=== PATIENT | female | born 1930 | race Caucasian/White ===

== ENCOUNTER 2017-07-19 11:12 | Emergency (ER) | payer MEDICARE, MEDICAID ==
[~2017-07-19] VITALS: Ht 160 cm; Wt 61.0 kg
[~2017-07-19 11:12] MED LIST: ATEN50TA; ATOR20TA65; FLUT1DIS; LOSA50TA3; METF500T7
[2017-07-19] MEDS ORDERED: TRAMADOL 50MG TABLET PO ONE (12:15)
[2017-07-19 13:18] LABS: EOSINOPHILS % 2.3 % (0.0-5.0); HEMATOCRIT. 36.7 % (36.0-48.0); HEMOGLOBIN. 12.1 g/dL (12.0-16.0); LYMPHOCYTES % 23.6 % (20.0-50.0); MEAN CORPUSCULAR HEMOGLOBIN 29.5 pg (28.0-32.0); MEAN CORPUSCULAR VOLUME 89.3 fL (81.0-99.0); MEAN PLATELET VOLUME 8.1 fl (7.4-10.4); MONOCYTES % 6.2 % (2.0-8.0); NEUTROPHILS % 66.9 % (40.0-76.0); PLATELET 222 x1000/uL (130-400); RED BLOOD CELL COUNT 4.11 mill/uL (4.2-5.4); RED CELL DISTRIBUTION WIDTH 13.4 % (11.6-14.6)
[2017-07-19 13:28] LABS: PARTIAL THROMBOPLASTIN TIME 25.2 sec (23.4-31.0); PROTHROMBIN TIME 10.7 sec (9.4-11.6)
[2017-07-19 13:33] LABS: CARBON DIOXIDE 28 mEq/L (21-32); CHLORIDE 105 mEq/L (98-107)
[2017-07-19 13:36] LABS: TROPONIN I < 0.02 ng/mL (0.00-0.04)
[2017-07-19] MEDS ORDERED: SODIUM CHLORIDE 0.9% 500 ML IV ONE (14:42)
[2017-07-19 16:04] VITALS: BP 145/65
== END 2017-07-19 16:05 | disposition home or self-care (01) ==
LOC: ER 13:37
DX: M54.12 Radiculopathy, cervical region (principal); M48.02 Spinal stenosis, cervical region; E86.0 Dehydration; I10 Essential (primary) hypertension; E11.65 Type 2 diabetes mellitus with hyperglycemia; J45.909 Unspecified asthma, uncomplicated; E78.00 Pure hypercholesterolemia, unspecified; Z79.84 Long term (current) use of oral hypoglycemic drugs; Z98.890 Other specified postprocedural states
CPT/HCPCS: 36415; 71010; 72141; 80048; 84484; 85025; 85610; 85730; 93005; 99285; J7040

== ENCOUNTER 2019-02-10 16:56 | Inpatient (IN) | payer MEDICARE, MEDICAID ==
[~2019-02-10] VITALS: Ht 152.4 cm; Wt 70.8 kg
[2019-02-10] MEDS ORDERED: ALBUTEROL (0.083%) 2.5MG/3ML NEB HHN STA (17:15)
[2019-02-10] MEDS ORDERED: LEVOFLOXACIN 750MG PREMIX 150 ML IV ONE (17:15)
[2019-02-10] MEDS ORDERED: SODIUM CHLORIDE 0.9% 1000ML BAG (SEPSIS BOLUS) IV ONE (17:15)
[2019-02-10] MEDS ORDERED: IPRATROPIUM BROMIDE (0.02%) 0.5MG/2.5ML NEB HHN STA (17:15)
[2019-02-10] MEDS ORDERED: METHYLPREDNISOLONE SOD SUCC 125 MG/2 ML VIAL IV STA (17:15)
[2019-02-10] MEDS ORDERED: ASPIRIN 81MG TABLET PO ONE (17:45)
[2019-02-10 17:51] LABS: BASOPHILS % 0.6 % (0.0-2.0); EOSINOPHILS % 2.8 % (0.0-5.0); HEMATOCRIT. 41.5 % (36.0-48.0); HEMOGLOBIN. 13.7 g/dL (12.0-16.0); LYMPHOCYTES % 25.5 % (20.0-50.0); MEAN CORPUSCULAR HEMOGLOBIN 29.5 pg (28.0-32.0); MEAN CORPUSCULAR VOLUME 89.1 fL (81.0-99.0); MEAN PLATELET VOLUME 8.2 fl (7.4-10.4); NEUTROPHILS % 66.1 % (40.0-76.0); PLATELET 207 x1000/uL (130-400); RED BLOOD CELL COUNT 4.65 mill/uL (4.2-5.4); RED CELL DISTRIBUTION WIDTH 13.6 % (11.6-14.6)
[2019-02-10 17:56] LABS: CHLORIDE 104 mEq/L (98-107)
[2019-02-10 18:01] LABS: PARTIAL THROMBOPLASTIN TIME 26.1 sec (23.4-31.0); PROTHROMBIN TIME 10.2 sec (9.1-11.1)
[2019-02-10 19:49] LABS: CLARITY URINE CLEAR (CLEAR); COLOR URINE YELLOW (YELLOW); KETONES URINE NEGATIVE (NEGATIVE); LEUKOCYTE ESTERASE URINE NEGATIVE (NEGATIVE); NITRITE URINE NEGATIVE (NEGATIVE); OCCULT BLOOD URINE NEGATIVE (NEGATIVE); PH URINE 6.5 (4.5-8.0); PROTEIN URINE NEGATIVE (NEGATIVE); SPECIFIC GRAVITY URINE 1.005 (1.005-1.030); UROBILINOGEN URINE 0.2 E.U./dL (0.2-1.0)
[2019-02-10] MEDS ORDERED: DEXTROSE 50% WATER 50ML SYRINGE IV PRN (23:45)
[2019-02-10] MEDS ORDERED: DIPHENHYDRAMINE 50MG/ML VIAL IV PRN (23:45)
[2019-02-10] MEDS ORDERED: ONDANSETRON HCL 4MG/2ML INJ IV PRN (23:45)
[2019-02-10] MEDS ORDERED: CEFTRIAXONE 1 G PREMIX 50 ML IV SCH (23:45)
[2019-02-10] MEDS ORDERED: AZITHROMYCIN 500 MG in DEXT 5% WATER 250 ML IV SCH (23:45)
[2019-02-10] MEDS ORDERED: IPRATROPIUM/ALBUTEROL 0.5-3(2.5)MG/3ML NEB INH PRN (23:45)
[2019-02-10] MEDS ORDERED: CLONIDINE 0.1MG TABLET PO PRN (23:45)
[2019-02-10] MEDS ORDERED: MAGNESIUM/ALUMINUM HYDROXIDE/SIMETHICONE 30ML UDC PO PRN (23:45)
[2019-02-10] MEDS ORDERED: GUAIFENESIN 200MG/10ML SUGAR FREE UDC PO PRN (23:45)
[2019-02-11] VITALS (7 sets, daily range): BP systolic 112–142; BP diastolic 49–70
[2019-02-11] MEDS: CEFTRIAXONE 1 G PREMIX 50 ML IV SCH (03:42)
[2019-02-11] MEDS: ACETAMINOPHEN 325MG TABLET PO PRN ×2 (03:44→11:37)
[2019-02-11] MEDS: IPRATROPIUM/ALBUTEROL 0.5-3(2.5)MG/3ML NEB HHN SCH ×5 (04:20→20:13)
[2019-02-11] MEDS: AZITHROMYCIN 500 MG in DEXT 5% WATER 250 ML IV SCH (05:08)
[2019-02-11] MEDS: BENZONATATE 100MG CAPSULE PO SCH ×3 (05:08→21:06)
[2019-02-11] MEDS: SODIUM CHLORIDE 0.9% INJ 3ML FLUSH IVF SCH ×3 (05:08→21:06)
[2019-02-11] MEDS: METHYLPREDNISOLONE SOD SUCC 125 MG/2 ML VIAL IV SCH ×3 (05:08→21:06)
[2019-02-11] MEDS: BLOOD SUGAR DIAGNOSTIC STRIP TEST SCH ×4 (07:27→20:49)
[2019-02-11] MEDS: ASPIRIN 81MG EC TABLET PO SCH (08:45)
[2019-02-11] MEDS: LINAGLIPTIN 5MG TABLET PO SCH (08:45)
[2019-02-11] MEDS: ENOXAPARIN 30MG/0.3ML SYR SUBCUT SCH (08:46)
[2019-02-11] MEDS: INSULIN LISPRO 100 UNITS/ML SUBCUT SCH ×4 (08:52→21:05)
[2019-02-11] MEDS ORDERED: INSULIN GLARGINE UD 100 UNITS/ML SYR SUBCUT SCH (10:00)
[2019-02-11] MEDS: INSULIN GLARGINE UD 100 UNITS/ML SYR SUBCUT SCH (11:39)
[2019-02-11] MEDS: MONTELUKAST SODIUM 10MG TABLET PO SCH (18:43)
[2019-02-11] MEDS: ATORVASTATIN CALCIUM 40MG TABLET PO SCH (21:06)
[2019-02-12] MEDS: IPRATROPIUM/ALBUTEROL 0.5-3(2.5)MG/3ML NEB HHN SCH ×5 (00:31→19:59)
[2019-02-12 00:52] VITALS: BP 126/67
[2019-02-12 04:00] VITALS: BP 114/55
[2019-02-12] MEDS: CEFTRIAXONE 1 G PREMIX 50 ML IV SCH (05:15)
[2019-02-12] MEDS: BENZONATATE 100MG CAPSULE PO SCH ×3 (05:15→21:18)
[2019-02-12] MEDS: SODIUM CHLORIDE 0.9% INJ 3ML FLUSH IVF SCH ×3 (05:16→21:18)
[2019-02-12] MEDS: METHYLPREDNISOLONE SOD SUCC 125 MG/2 ML VIAL IV SCH (05:16)
[2019-02-12] MEDS: BLOOD SUGAR DIAGNOSTIC STRIP TEST SCH ×5 (06:10→21:18)
[2019-02-12 08:00] VITALS: BP 141/68
[2019-02-12] MEDS: INSULIN LISPRO 100 UNITS/ML SUBCUT SCH ×4 (08:55→21:00)
[2019-02-12] MEDS: AZITHROMYCIN 500 MG in DEXT 5% WATER 250 ML IV SCH (09:08)
[2019-02-12] MEDS: LINAGLIPTIN 5MG TABLET PO SCH (09:09)
[2019-02-12] MEDS: ACETAMINOPHEN 325MG TABLET PO PRN (09:09)
[2019-02-12] MEDS: ASPIRIN 81MG EC TABLET PO SCH (09:09)
[2019-02-12] MEDS: ENOXAPARIN 30MG/0.3ML SYR SUBCUT SCH (09:09)
[2019-02-12] MEDS: INSULIN GLARGINE UD 100 UNITS/ML SYR SUBCUT SCH (09:12)
[2019-02-12 12:00] VITALS: BP 134/66
[2019-02-12] MEDS: LORATADINE 10MG TABLET PO SCH (12:00)
[2019-02-12] MEDS: FAMOTIDINE 20MG TABLET PO SCH (12:00)
[2019-02-12] MEDS ORDERED: LOPERAMIDE HCL 2MG CAPSULE PO NR (14:45)
[2019-02-12] MEDS ORDERED: LOPERAMIDE HCL 2MG CAPSULE PO PRN (14:45)
[2019-02-12 16:00] VITALS: BP 140/72
[2019-02-12] MEDS: MONTELUKAST SODIUM 10MG TABLET PO SCH (17:26)
[2019-02-12] MEDS: METHYLPREDNISOLONE SOD SUCC 40 MG/ML VIAL IV SCH (17:27)
[2019-02-12 20:00] VITALS: BP 125/61
[2019-02-12] MEDS: ATORVASTATIN CALCIUM 40MG TABLET PO SCH (21:18)
[2019-02-12 22:56] LABS: CREATINE KINASE MB FRACTION 7.3 ng/mL (0.5-3.6)
[2019-02-13] VITALS: BP 122/51
[2019-02-13] MEDS: IPRATROPIUM/ALBUTEROL 0.5-3(2.5)MG/3ML NEB HHN SCH ×4 (02:12→20:44)
[2019-02-13 04:00] VITALS: BP 117/58
[2019-02-13] MEDS: METHYLPREDNISOLONE SOD SUCC 40 MG/ML VIAL IV SCH ×2 (05:05→17:47)
[2019-02-13] MEDS: CEFTRIAXONE 1 G PREMIX 50 ML IV SCH (05:05)
[2019-02-13] MEDS: SODIUM CHLORIDE 0.9% INJ 3ML FLUSH IVF SCH ×3 (05:05→21:11)
[2019-02-13] MEDS: BENZONATATE 100MG CAPSULE PO SCH ×3 (05:05→21:09)
[2019-02-13] MEDS: BLOOD SUGAR DIAGNOSTIC STRIP TEST SCH ×4 (06:22→21:10)
[2019-02-13 06:58] LABS: CREATINE KINASE MB FRACTION 5.7 ng/mL (0.5-3.6)
[2019-02-13 08:00] VITALS: BP 120/53
[2019-02-13] MEDS: INSULIN LISPRO 100 UNITS/ML SUBCUT SCH ×4 (08:06→21:11)
[2019-02-13] MEDS: FAMOTIDINE 20MG TABLET PO SCH (09:05)
[2019-02-13] MEDS: LINAGLIPTIN 5MG TABLET PO SCH (09:06)
[2019-02-13] MEDS: ASPIRIN 81MG EC TABLET PO SCH (09:06)
[2019-02-13] MEDS: LORATADINE 10MG TABLET PO SCH (09:07)
[2019-02-13] MEDS: ENOXAPARIN 30MG/0.3ML SYR SUBCUT SCH (09:08)
[2019-02-13] MEDS: AZITHROMYCIN 500 MG in DEXT 5% WATER 250 ML IV SCH (09:08)
[2019-02-13] MEDS: INSULIN GLARGINE UD 100 UNITS/ML SYR SUBCUT SCH (10:09)
[2019-02-13 16:00] VITALS: BP 134/54
[2019-02-13] MEDS: MONTELUKAST SODIUM 10MG TABLET PO SCH (17:47)
[2019-02-13 20:35] VITALS: BP 125/61
[2019-02-13] MEDS: ATORVASTATIN CALCIUM 40MG TABLET PO SCH (21:09)
[2019-02-13] MEDS: FLUTICASONE PROPIONATE 50MCG/SPRAY BOTTLE BOTHNSTRLS SCH (21:10)
[2019-02-14] VITALS: BP 124/55
[2019-02-14] MEDS: ACETYLCYSTEINE 100MG/ML 10% VIAL 4ML INH SCH ×3 (00:38→17:20)
[2019-02-14] MEDS: IPRATROPIUM/ALBUTEROL 0.5-3(2.5)MG/3ML NEB HHN SCH ×6 (00:38→20:44)
[2019-02-14 04:00] VITALS: BP 107/47
[2019-02-14] MEDS: BENZONATATE 100MG CAPSULE PO SCH ×3 (05:08→21:28)
[2019-02-14] MEDS: SODIUM CHLORIDE 0.9% INJ 3ML FLUSH IVF SCH ×3 (05:08→21:29)
[2019-02-14] MEDS: METHYLPREDNISOLONE SOD SUCC 40 MG/ML VIAL IV SCH ×2 (05:08→18:06)
[2019-02-14] MEDS: CEFTRIAXONE 1 G PREMIX 50 ML IV SCH (05:08)
[2019-02-14] MEDS: BLOOD SUGAR DIAGNOSTIC STRIP TEST SCH ×4 (06:27→21:28)
[2019-02-14 08:00] VITALS: BP 111/55
[2019-02-14] MEDS: ASPIRIN 81MG EC TABLET PO SCH (08:00)
[2019-02-14] MEDS: AZITHROMYCIN 500 MG TABLET PO SCH (08:00)
[2019-02-14] MEDS: FLUTICASONE PROPIONATE 50MCG/SPRAY BOTTLE BOTHNSTRLS SCH ×2 (08:01→21:28)
[2019-02-14] MEDS: LINAGLIPTIN 5MG TABLET PO SCH (08:01)
[2019-02-14] MEDS: ENOXAPARIN 30MG/0.3ML SYR SUBCUT SCH (08:01)
[2019-02-14] MEDS: LORATADINE 10MG TABLET PO SCH (08:01)
[2019-02-14] MEDS: FAMOTIDINE 20MG TABLET PO SCH (08:01)
[2019-02-14] MEDS: INSULIN LISPRO 100 UNITS/ML SUBCUT SCH ×4 (08:04→21:34)
[2019-02-14] MEDS: INSULIN GLARGINE UD 100 UNITS/ML SYR SUBCUT SCH (10:45)
[2019-02-14 12:00] VITALS: BP 121/66
[2019-02-14 16:00] VITALS: BP 116/61
[2019-02-14] MEDS: MONTELUKAST SODIUM 10MG TABLET PO SCH (18:06)
[2019-02-14 20:00] VITALS: BP 105/72
[2019-02-14] MEDS: ATORVASTATIN CALCIUM 40MG TABLET PO SCH (21:28)
[2019-02-15] VITALS: BP 110/59
[2019-02-15] MEDS: ACETYLCYSTEINE 100MG/ML 10% VIAL 4ML INH SCH ×3 (00:39→15:51)
[2019-02-15] MEDS: IPRATROPIUM/ALBUTEROL 0.5-3(2.5)MG/3ML NEB HHN SCH ×6 (00:40→19:53)
[2019-02-15 04:00] VITALS: BP 112/65
[2019-02-15] MEDS: CEFTRIAXONE 1 G PREMIX 50 ML IV SCH (05:07)
[2019-02-15] MEDS: METHYLPREDNISOLONE SOD SUCC 40 MG/ML VIAL IV SCH ×2 (05:07→18:06)
[2019-02-15] MEDS: BENZONATATE 100MG CAPSULE PO SCH ×3 (05:07→21:01)
[2019-02-15] MEDS: SODIUM CHLORIDE 0.9% INJ 3ML FLUSH IVF SCH ×3 (05:07→21:04)
[2019-02-15] MEDS: BLOOD SUGAR DIAGNOSTIC STRIP TEST SCH ×4 (07:20→21:04)
[2019-02-15 08:29] VITALS: BP 113/71
[2019-02-15] MEDS: LINAGLIPTIN 5MG TABLET PO SCH (08:31)
[2019-02-15] MEDS: AZITHROMYCIN 500 MG TABLET PO SCH (08:31)
[2019-02-15] MEDS: FLUTICASONE PROPIONATE 50MCG/SPRAY BOTTLE BOTHNSTRLS SCH ×2 (08:31→21:04)
[2019-02-15] MEDS: FAMOTIDINE 20MG TABLET PO SCH (08:31)
[2019-02-15] MEDS: LORATADINE 10MG TABLET PO SCH (08:31)
[2019-02-15] MEDS: ASPIRIN 81MG EC TABLET PO SCH (08:31)
[2019-02-15] MEDS: ENOXAPARIN 30MG/0.3ML SYR SUBCUT SCH (08:31)
[2019-02-15] MEDS: INSULIN LISPRO 100 UNITS/ML SUBCUT SCH ×4 (08:35→21:09)
[2019-02-15] MEDS: INSULIN GLARGINE UD 100 UNITS/ML SYR SUBCUT SCH (10:07)
[2019-02-15 12:07] VITALS: BP 116/61
[2019-02-15] MEDS ORDERED: TERBUTALINE SULFATE 1MG/ML VIAL SUBCUT SCH (12:30)
[2019-02-15 16:08] VITALS: BP 101/49
[2019-02-15] MEDS: MONTELUKAST SODIUM 10MG TABLET PO SCH (18:06)
[2019-02-15 20:14] VITALS: BP 120/56
[2019-02-15] MEDS: ATORVASTATIN CALCIUM 40MG TABLET PO SCH (21:01)
[2019-02-16] VITALS: BP 126/56
[2019-02-16] MEDS: ACETYLCYSTEINE 100MG/ML 10% VIAL 4ML INH SCH ×3 (00:16→16:08)
[2019-02-16] MEDS: IPRATROPIUM/ALBUTEROL 0.5-3(2.5)MG/3ML NEB HHN SCH ×6 (00:19→22:13)
[2019-02-16 04:00] VITALS: BP 116/60
[2019-02-16] MEDS: CEFTRIAXONE 1 G PREMIX 50 ML IV SCH (05:58)
[2019-02-16] MEDS: METHYLPREDNISOLONE SOD SUCC 40 MG/ML VIAL IV SCH ×2 (05:58→18:29)
[2019-02-16] MEDS: BLOOD SUGAR DIAGNOSTIC STRIP TEST SCH ×4 (05:59→21:00)
[2019-02-16] MEDS: BENZONATATE 100MG CAPSULE PO SCH ×3 (05:59→21:53)
[2019-02-16] MEDS: SODIUM CHLORIDE 0.9% INJ 3ML FLUSH IVF SCH ×3 (05:59→21:53)
[2019-02-16 08:00] VITALS: BP 120/62
[2019-02-16] MEDS: AZITHROMYCIN 500 MG TABLET PO SCH (09:31)
[2019-02-16] MEDS: FAMOTIDINE 20MG TABLET PO SCH (09:31)
[2019-02-16] MEDS: LORATADINE 10MG TABLET PO SCH (09:31)
[2019-02-16] MEDS: LINAGLIPTIN 5MG TABLET PO SCH (09:31)
[2019-02-16] MEDS: ASPIRIN 81MG EC TABLET PO SCH (09:31)
[2019-02-16] MEDS: FLUTICASONE PROPIONATE 50MCG/SPRAY BOTTLE BOTHNSTRLS SCH (09:32)
[2019-02-16] MEDS: ENOXAPARIN 30MG/0.3ML SYR SUBCUT SCH (09:32)
[2019-02-16] MEDS: INSULIN LISPRO 100 UNITS/ML SUBCUT SCH ×4 (09:41→22:07)
[2019-02-16] MEDS: INSULIN GLARGINE UD 100 UNITS/ML SYR SUBCUT SCH (09:44)
[2019-02-16 12:00] VITALS: BP 128/62
[2019-02-16 16:00] VITALS: BP 127/62
[2019-02-16] MEDS: MONTELUKAST SODIUM 10MG TABLET PO SCH (18:29)
[2019-02-16 20:00] VITALS: BP 125/69
[2019-02-16] MEDS: ATORVASTATIN CALCIUM 40MG TABLET PO SCH (21:53)
[2019-02-17] VITALS: BP 120/68
[2019-02-17] MEDS: ACETYLCYSTEINE 100MG/ML 10% VIAL 4ML INH SCH ×4 (00:44→16:04)
[2019-02-17] MEDS: IPRATROPIUM/ALBUTEROL 0.5-3(2.5)MG/3ML NEB HHN SCH ×6 (01:35→20:30)
[2019-02-17 04:00] VITALS: BP 115/52
[2019-02-17] MEDS: CEFTRIAXONE 1 G PREMIX 50 ML IV SCH (05:11)
[2019-02-17] MEDS: SODIUM CHLORIDE 0.9% INJ 3ML FLUSH IVF SCH ×3 (05:11→23:48)
[2019-02-17] MEDS: BENZONATATE 100MG CAPSULE PO SCH ×3 (05:12→21:07)
[2019-02-17] MEDS: METHYLPREDNISOLONE SOD SUCC 40 MG/ML VIAL IV SCH (05:12)
[2019-02-17] MEDS: BLOOD SUGAR DIAGNOSTIC STRIP TEST SCH ×4 (07:24→21:18)
[2019-02-17 08:00] VITALS: BP 119/56
[2019-02-17 08:14] LABS: HEMATOCRIT 42.8 % (36.0-48.0); HEMOGLOBIN 14.3 g/dL (12.0-16.0); MEAN CORPUSCULAR VOLUME 89.7 fL (81.0-99.0); PLATELET 181 x1000/uL (130-400); RED BLOOD CELL COUNT 4.77 mill/uL (4.2-5.4); RED CELL DISTRIBUTION WIDTH 13.9 % (11.6-14.6)
[2019-02-17] MEDS: AZITHROMYCIN 500 MG TABLET PO SCH (08:32)
[2019-02-17] MEDS: LINAGLIPTIN 5MG TABLET PO SCH (08:32)
[2019-02-17] MEDS: ENOXAPARIN 30MG/0.3ML SYR SUBCUT SCH (08:32)
[2019-02-17] MEDS: LORATADINE 10MG TABLET PO SCH (08:32)
[2019-02-17] MEDS: ASPIRIN 81MG EC TABLET PO SCH (08:32)
[2019-02-17] MEDS: FAMOTIDINE 20MG TABLET PO SCH (08:32)
[2019-02-17] MEDS: INSULIN LISPRO 100 UNITS/ML SUBCUT SCH ×4 (08:33→21:06)
[2019-02-17] MEDS: INSULIN GLARGINE UD 100 UNITS/ML SYR SUBCUT SCH (10:59)
[2019-02-17 12:00] VITALS: BP 100/57
[2019-02-17 16:00] VITALS: BP 98/57
[2019-02-17] MEDS: PREDNISONE 20MG TABLET PO SCH (17:33)
[2019-02-17] MEDS: MONTELUKAST SODIUM 10MG TABLET PO SCH (17:33)
[2019-02-17 20:00] VITALS: BP 105/54
[2019-02-17] MEDS: ATORVASTATIN CALCIUM 40MG TABLET PO SCH (21:06)
[2019-02-18] VITALS: BP 101/47
[2019-02-18] MEDS: IPRATROPIUM/ALBUTEROL 0.5-3(2.5)MG/3ML NEB HHN SCH ×2 (00:44→04:42)
[2019-02-18] MEDS: ACETYLCYSTEINE 100MG/ML 10% VIAL 4ML INH SCH ×2 (00:44→06:00)
[2019-02-18 04:00] VITALS: BP 108/50
[2019-02-18] MEDS: SODIUM CHLORIDE 0.9% INJ 3ML FLUSH IVF SCH ×2 (05:39→14:00)
[2019-02-18] MEDS: BENZONATATE 100MG CAPSULE PO SCH ×2 (05:39→13:30)
[2019-02-18] MEDS: BLOOD SUGAR DIAGNOSTIC STRIP TEST SCH ×2 (06:50→12:21)
[2019-02-18 07:43] LABS: CHLORIDE 101 mEq/L (98-107)
[2019-02-18 08:00] VITALS: BP 106/50
[2019-02-18] MEDS: FAMOTIDINE 20MG TABLET PO SCH (09:28)
[2019-02-18] MEDS: PREDNISONE 20MG TABLET PO SCH (09:28)
[2019-02-18] MEDS: LINAGLIPTIN 5MG TABLET PO SCH (09:28)
[2019-02-18] MEDS: ASPIRIN 81MG EC TABLET PO SCH (09:28)
[2019-02-18] MEDS: AZITHROMYCIN 500 MG TABLET PO SCH (09:28)
[2019-02-18] MEDS: LORATADINE 10MG TABLET PO SCH (09:28)
[2019-02-18] MEDS: ENOXAPARIN 30MG/0.3ML SYR SUBCUT SCH (09:29)
[2019-02-18] MEDS: INSULIN LISPRO 100 UNITS/ML SUBCUT SCH ×2 (09:30→13:32)
[2019-02-18] MEDS: INSULIN GLARGINE UD 100 UNITS/ML SYR SUBCUT SCH (09:31)
[2019-02-18 09:47] LABS: HEMATOCRIT. 42.7 % (36.0-48.0); HEMOGLOBIN. 14.1 g/dL (12.0-16.0); MEAN CORPUSCULAR HEMOGLOBIN 29.7 pg (28.0-32.0); MEAN CORPUSCULAR VOLUME 89.8 fL (81.0-99.0); MEAN PLATELET VOLUME 9.2 fl (7.4-10.4); PLATELET 177 x1000/uL (130-400); RED BLOOD CELL COUNT 4.76 mill/uL (4.2-5.4)
[2019-02-18 12:00] VITALS: BP 114/60
[2019-02-19 07:51] LABS: PLATELET ESTIMATE NORMAL
== END 2019-02-18 16:35 | disposition home or self-care (01) | DRG 682 ==
LOC: ER 16:56 → 6WST 18:52 → ENRESERV 23:01
PROVIDERS: ADMIT Internal Medicine; ATTEND Internal Medicine
DX: N17.9 Acute kidney failure, unspecified (principal); J18.9 Pneumonia, unspecified organism; J96.00 Acute respiratory failure, unspecified whether with hypoxia or hypercapnia; J45.901 Unspecified asthma with (acute) exacerbation; E78.00 Pure hypercholesterolemia, unspecified; E78.5 Hyperlipidemia, unspecified; I10 Essential (primary) hypertension; J06.9 Acute upper respiratory infection, unspecified; J00 Acute nasopharyngitis [common cold]; E11.9 Type 2 diabetes mellitus without complications; M19.90 Unspecified osteoarthritis, unspecified site; J20.9 Acute bronchitis, unspecified; Z83.3 Family history of diabetes mellitus; Z87.891 Personal history of nicotine dependence; Z79.84 Long term (current) use of oral hypoglycemic drugs; Z79.899 Other long term (current) drug therapy
CPT/HCPCS: 36415; 71045; 80048; 82553; 82962; 83036; 83605; 83735; 83880; 84484; 85027; 87804; 93005; 94640; 96365; 96375; 99285; C1893; J0456; J0696; J1650; J1815; J1956; J2920; J2930; J3105; J7030; J7040; J7060; J7512; J7608; J7611; J7620

== ENCOUNTER 2019-11-15 10:35 | Emergency (ER) | payer MEDICARE, MEDICAID ==
[~2019-11-15] VITALS: Ht 157.5 cm; Wt 74.0 kg
[2019-11-15 10:54] VITALS: BP 134/45
[2019-11-15] MEDS ORDERED: LIDOCAINE 5% PATCH TOP STA (12:12)
[2019-11-15] MEDS ORDERED: ACETAMINOPHEN 500MG TABLET PO ONE (12:15)
== END 2019-11-15 16:35 | disposition home or self-care (01) ==
LOC: ER 10:35
DX: M54.5 Low back pain (principal); G89.29 Other chronic pain; J45.909 Unspecified asthma, uncomplicated; E11.9 Type 2 diabetes mellitus without complications; E78.00 Pure hypercholesterolemia, unspecified; I10 Essential (primary) hypertension; Z98.890 Other specified postprocedural states; Z79.899 Other long term (current) drug therapy
CPT/HCPCS: 72100; 99283

== ENCOUNTER 2021-03-26 15:48 | Emergency (ER) | payer MEDICARE, MEDICAID ==
[~2021-03-26] VITALS: Ht 154.9 cm; Wt 66.0 kg
[~2021-03-26 15:48] MED LIST changes: -METF500T7; +[UNRECOGNIZED DRUG - CODE]
[2021-03-26 15:51] VITALS: BP 93/71
== END 2021-03-26 16:44 | disposition home or self-care (01) ==
LOC: ER 15:48
DX: S90.31XA Contusion of right foot, initial encounter (principal); X58.XXXA Exposure to other specified factors, initial encounter; Y93.9 Activity, unspecified; Y92.9 Unspecified place or not applicable; I10 Essential (primary) hypertension; E11.9 Type 2 diabetes mellitus without complications; J45.909 Unspecified asthma, uncomplicated; E78.00 Pure hypercholesterolemia, unspecified; Z79.899 Other long term (current) drug therapy; Z79.84 Long term (current) use of oral hypoglycemic drugs
CPT/HCPCS: 99281

== ENCOUNTER 2021-05-08 17:00 | Emergency (ER) | payer MEDICARE, MEDICAID ==
[~2021-05-08] VITALS: Ht 149.9 cm; Wt 70.0 kg
[2021-05-08] MEDS ORDERED: ACETAMINOPHEN 325MG TABLET PO ONE (19:00)
[2021-05-08 19:17] LABS: BASOPHILS % 0.9 % (0.0-2.0); EOSINOPHILS % 2.1 % (0.0-5.0); HEMATOCRIT. 38.8 % (36.0-48.0); HEMOGLOBIN. 12.8 g/dL (12.0-16.0); LYMPHOCYTES % 15.3 % (20.0-50.0); MEAN CORPUSCULAR HEMOGLOBIN 29.4 pg (28.0-32.0); MEAN CORPUSCULAR VOLUME 89.1 fL (81.0-99.0); MEAN PLATELET VOLUME 8.7 fl (7.4-10.4); MONOCYTES % 7.1 % (2.0-8.0); NEUTROPHILS % 74.6 % (40.0-76.0); PLATELET 205 x1000/uL (130-400); RED BLOOD CELL COUNT 4.36 mill/uL (4.2-5.4); RED CELL DISTRIBUTION WIDTH 15.1 % (11.6-14.6)
[2021-05-08 19:25] LABS: CHLORIDE 105 mEq/L (98-107)
[2021-05-08 19:26] LABS: INR 0.9; PROTHROMBIN TIME 10.2 sec (9.6-11.0)
[2021-05-08 19:53] LABS: CLARITY URINE CLEAR (CLEAR); COLOR URINE YELLOW (YELLOW); KETONES URINE NEGATIVE (NEGATIVE); LEUKOCYTE ESTERASE URINE TRACE (NEGATIVE); NITRITE URINE NEGATIVE (NEGATIVE); OCCULT BLOOD URINE NEGATIVE (NEGATIVE); PH URINE 5.5 (4.5-8.0); PROTEIN URINE NEGATIVE (NEGATIVE); UROBILINOGEN URINE 0.2 E.U./dL (0.2-1.0)
[2021-05-08] MEDS ORDERED: NITROFURANTOIN 100MG M/M CAPSULE PO SCH (22:30)
[2021-05-08] MEDS ORDERED: NITR-87 MT (22:46)
[2021-05-09 00:15] VITALS: BP 126/45
== END 2021-05-09 00:30 | disposition home or self-care (01) ==
LOC: ER 17:00
DX: N39.0 Urinary tract infection, site not specified (principal); M79.605 Pain in left leg; I10 Essential (primary) hypertension; E11.9 Type 2 diabetes mellitus without complications; M19.90 Unspecified osteoarthritis, unspecified site
CPT/HCPCS: 36415; 71045; 80053; 81003; 83880; 84484; 85025; 93005; 93970; 99285

== ENCOUNTER 2021-08-23 20:19 | Emergency (ER) | payer MEDICARE, MEDICAID ==
[~2021-08-23] VITALS: Ht 152.4 cm; Wt 70.0 kg
[~2021-08-23 20:19] MED LIST changes: +METF-907; +NITR-87 MT; -[UNRECOGNIZED DRUG - CODE]
[2021-08-23] MEDS ORDERED: IBUPROFEN 400MG TABLET PO ONE (22:30)
[2021-08-23 23:11] VITALS: BP 131/57
== END 2021-08-24 00:05 | disposition home or self-care (01) ==
LOC: ER 20:19
DX: S43.491A Other sprain of right shoulder joint, initial encounter (principal); W01.0XXA Fall on same level from slipping, tripping and stumbling without subsequent striking against object, initial encounter; Y93.01 Activity, walking, marching and hiking; Y92.018 Other place in single-family (private) house as the place of occurrence of the external cause; E11.9 Type 2 diabetes mellitus without complications; J45.909 Unspecified asthma, uncomplicated; Z79.84 Long term (current) use of oral hypoglycemic drugs; Z79.899 Other long term (current) drug therapy
CPT/HCPCS: 73030; 73060; 99284; A4565

== ENCOUNTER 2021-11-23 17:58 | Emergency (ER) | payer MEDICARE, MEDICAID ==
[~2021-11-23] VITALS: Ht 157.5 cm; Wt 82.0 kg
[2021-11-23] MEDS ORDERED: MORPHINE SULFATE 4 MG/ML CPJ (NOT FOR IM USE) IV STA (19:09)
[2021-11-23 19:56] LABS: BASOPHILS % 0.6 % (0.0-2.0); HEMATOCRIT. 43.2 % (36.0-48.0); HEMOGLOBIN. 14.3 g/dL (12.0-16.0); LYMPHOCYTES % 18.6 % (20.0-50.0); MEAN CORPUSCULAR HEMOGLOBIN 29.2 pg (28.0-32.0); MEAN CORPUSCULAR VOLUME 88.4 fL (81.0-99.0); MEAN PLATELET VOLUME 8.4 fl (7.4-10.4); MONOCYTES % 8.2 % (2.0-8.0); NEUTROPHILS % 70.6 % (40.0-76.0); PLATELET 212 x1000/uL (130-400); RED BLOOD CELL COUNT 4.88 mill/uL (4.2-5.4); RED CELL DISTRIBUTION WIDTH 14.5 % (11.6-14.6)
[2021-11-23 20:00] LABS: CHLORIDE 103 mEq/L (98-107)
[2021-11-23] MEDS ORDERED: HYDR-4001 MT (20:55)
[2021-11-23] MEDS ORDERED: KETOROLAC 30MG/ML VIAL IV ONE (21:00)
[2021-11-23 22:50] VITALS: BP 152/70
== END 2021-11-23 23:02 | disposition home or self-care (01) ==
LOC: ER 17:58
DX: R10.2 Pelvic and perineal pain (principal); M25.552 Pain in left hip; I10 Essential (primary) hypertension; Z91.81 History of falling
CPT/HCPCS: 36415; 72100; 72170; 80053; 85025; 96374; 96375; 99284; J1885; J2270

== ENCOUNTER 2022-02-16 08:37 | Inpatient (IN) | payer MEDICARE, MEDICAID ==
[~2022-02-16] VITALS: Ht 152.4 cm; Wt 68.1 kg
[~2022-02-16 08:37] MED LIST changes: +HYDR-4001 MT
[2022-02-16] MEDS ORDERED: MORPHINE SULFATE 4 MG/ML CPJ (NOT FOR IM USE) IV STA (08:56)
[2022-02-16] MEDS ORDERED: SODIUM CHLORIDE 0.9% 1,000 ML IV ONE (09:00)
[2022-02-16 09:25] LABS: BASOPHILS % 0.4 % (0.0-2.0); EOSINOPHILS % 1.2 % (0.0-5.0); HEMATOCRIT. 39.2 % (36.0-48.0); MEAN CORPUSCULAR HEMOGLOBIN 29.2 pg (28.0-32.0); MEAN CORPUSCULAR VOLUME 87.9 fL (81.0-99.0); MEAN PLATELET VOLUME 8.4 fl (7.4-10.4); MONOCYTES % 4.9 % (2.0-8.0); NEUTROPHILS % 83.5 % (40.0-76.0); PLATELET 188 x1000/uL (130-400); RED BLOOD CELL COUNT 4.46 mill/uL (4.2-5.4); RED CELL DISTRIBUTION WIDTH 13.5 % (11.6-14.6)
[2022-02-16 09:31] LABS: CHLORIDE 103 mEq/L (98-107)
[2022-02-16 11:42] LABS: CLARITY URINE CLEAR (CLEAR); COLOR URINE YELLOW (YELLOW); KETONES URINE NEGATIVE (NEGATIVE); LEUKOCYTE ESTERASE URINE 2+ (NEGATIVE); NITRITE URINE NEGATIVE (NEGATIVE); OCCULT BLOOD URINE NEGATIVE (NEGATIVE); PROTEIN URINE NEGATIVE (NEGATIVE); SPECIFIC GRAVITY URINE 1.014 (1.005-1.030)
[2022-02-16 13:13] VITALS: BP 126/52
[2022-02-16] MEDS ORDERED: MEMA10TA55 PO (13:39)
[2022-02-16] MEDS ORDERED: MONT10TA32 PO (13:39)
[2022-02-16] MEDS ORDERED: NORT10CA PO (13:39)
[2022-02-16] MEDS ORDERED: ATOR40TA70 PO (13:39)
[2022-02-16] MEDS ORDERED: PANT40TA51 PO (13:39)
[2022-02-16] MEDS ORDERED: ASPI-1497 PO (13:39)
[2022-02-16] MEDS ORDERED: LINA5TAB PO (13:39)
[2022-02-16] MEDS ORDERED: LACT10SO6 PO (13:39)
[2022-02-16] MEDS ORDERED: ALEN1TAB MT (13:42)
[2022-02-16] MEDS ORDERED: ALEN10TA25 PO (13:42)
[2022-02-16 16:00] VITALS: BP 111/75
[2022-02-16] MEDS: SODIUM CHLORIDE 0.9% 1,000 ML IV SCH (16:29)
[2022-02-16] MEDS ORDERED: DEXTROSE 50% WATER 50ML SYRINGE IV PRN (17:00)
[2022-02-16] MEDS: BLOOD SUGAR DIAGNOSTIC STRIP TEST SCH ×2 (17:47→20:18)
[2022-02-16] MEDS: INSULIN LISPRO 100 UNITS/ML SUBCUT SCH ×2 (17:50→20:28)
[2022-02-16 20:00] VITALS: BP 138/72
[2022-02-16] MEDS: KETOROLAC 15MG/ML VIAL IV PRN (20:13)
[2022-02-16] MEDS ORDERED: NALOXONE HCL 0.4MG/ML VIAL IV PRN (20:15)
[2022-02-17] VITALS: BP 99/56
[2022-02-17] MEDS ORDERED: VANCOMYCIN 1G PREMIX 200 ML IV SCH
[2022-02-17] MEDS ORDERED: VANCOMYCIN 500MG PREMIX 100 ML IV SCH (01:00)
[2022-02-17] MEDS: SODIUM CHLORIDE 0.9% 1,000 ML IV SCH ×3 (01:04→22:32)
[2022-02-17 04:00] VITALS: BP 127/55
[2022-02-17] MEDS: INSULIN LISPRO 100 UNITS/ML SUBCUT SCH ×4 (07:50→20:57)
[2022-02-17 08:00] VITALS: BP 129/50
[2022-02-17] MEDS: BLOOD SUGAR DIAGNOSTIC STRIP TEST SCH ×4 (08:17→20:51)
[2022-02-17] MEDS ORDERED: LORAZEPAM 1MG TABLET PO PRN (11:00)
[2022-02-17 12:00] VITALS: BP 118/55
[2022-02-17 12:06] LABS: HEMATOCRIT. 36.1 % (36.0-48.0); HEMOGLOBIN. 12.1 g/dL (12.0-16.0); MEAN CORPUSCULAR HEMOGLOBIN 29.5 pg (28.0-32.0); MEAN CORPUSCULAR VOLUME 87.5 fL (81.0-99.0); MEAN PLATELET VOLUME 8.2 fl (7.4-10.4); PLATELET 145 x1000/uL (130-400); RED BLOOD CELL COUNT 4.12 mill/uL (4.2-5.4); RED CELL DISTRIBUTION WIDTH 13.6 % (11.6-14.6)
[2022-02-17] MEDS: VANCOMYCIN 500MG PREMIX 100 ML IV SCH (12:26)
[2022-02-17] MEDS: KETOROLAC 15MG/ML VIAL IV PRN (12:37)
[2022-02-17 12:56] LABS: PLATELET ESTIMATE NORMAL
[2022-02-17 16:00] VITALS: BP 124/50
[2022-02-17 20:00] VITALS: BP 126/60
[2022-02-17] MEDS: ACETAMINOPHEN 325MG TABLET PO PRN (20:51)
[2022-02-18] VITALS: BP 114/54
[2022-02-18 04:00] VITALS: BP 130/53
[2022-02-18] MEDS: MORPHINE SULFATE 2 MG/ML CPJ (NOT FOR IM USE) IV PRN (05:40)
[2022-02-18] MEDS ORDERED: MORPHINE SULFATE 2 MG/ML CPJ (NOT FOR IM USE) IV NR (06:00)
[2022-02-18] MEDS: BLOOD SUGAR DIAGNOSTIC STRIP TEST SCH ×4 (07:20→21:28)
[2022-02-18 07:41] LABS: BASOPHILS % 0.3 % (0.0-2.0); EOSINOPHILS % 0.9 % (0.0-5.0); HEMATOCRIT. 37.4 % (36.0-48.0); HEMOGLOBIN. 12.6 g/dL (12.0-16.0); LYMPHOCYTES % 7.9 % (20.0-50.0); MEAN CORPUSCULAR HEMOGLOBIN 29.7 pg (28.0-32.0); MEAN CORPUSCULAR VOLUME 88.2 fL (81.0-99.0); MEAN PLATELET VOLUME 8.6 fl (7.4-10.4); MONOCYTES % 7.8 % (2.0-8.0); NEUTROPHILS % 83.1 % (40.0-76.0); PLATELET 133 x1000/uL (130-400); RED BLOOD CELL COUNT 4.24 mill/uL (4.2-5.4); RED CELL DISTRIBUTION WIDTH 14.1 % (11.6-14.6)
[2022-02-18 08:00] VITALS: BP 103/65
[2022-02-18] MEDS: INSULIN LISPRO 100 UNITS/ML SUBCUT SCH ×4 (08:50→21:00)
[2022-02-18] MEDS: SODIUM CHLORIDE 0.9% 1,000 ML IV SCH ×2 (08:53→18:15)
[2022-02-18] MEDS: ASPIRIN 81MG TABLET PO SCH (11:32)
[2022-02-18] MEDS: VANCOMYCIN 500MG PREMIX 100 ML IV SCH (11:36)
[2022-02-18 11:57] VITALS: BP 134/55
[2022-02-18] MEDS: KETOROLAC 15MG/ML VIAL IV PRN (15:42)
[2022-02-18 16:14] VITALS: BP 123/47
[2022-02-18] MEDS ORDERED: CEFTRIAXONE 2 G PREMIX 50 ML IV SCH (16:45)
[2022-02-18] MEDS: CEFTRIAXONE 2 G in DEXTROSE 5% WATER 50 ML IV SCH (18:34)
[2022-02-18 20:00] VITALS: BP 130/55
[2022-02-19] VITALS: BP 121/87
[2022-02-19] MEDS: SODIUM CHLORIDE 0.9% 1,000 ML IV SCH ×3 (03:19→23:09)
[2022-02-19 04:00] VITALS: BP 125/86
[2022-02-19] MEDS: BLOOD SUGAR DIAGNOSTIC STRIP TEST SCH ×4 (06:39→21:25)
[2022-02-19 07:16] LABS: BASOPHILS % 0.2 % (0.0-2.0); EOSINOPHILS % 0.8 % (0.0-5.0); HEMATOCRIT. 34.7 % (36.0-48.0); HEMOGLOBIN. 11.7 g/dL (12.0-16.0); LYMPHOCYTES % 7.7 % (20.0-50.0); MEAN CORPUSCULAR HEMOGLOBIN 29.5 pg (28.0-32.0); MEAN CORPUSCULAR VOLUME 87.5 fL (81.0-99.0); MEAN PLATELET VOLUME 8.3 fl (7.4-10.4); MONOCYTES % 7.9 % (2.0-8.0); NEUTROPHILS % 83.4 % (40.0-76.0); PLATELET 149 x1000/uL (130-400); RED BLOOD CELL COUNT 3.97 mill/uL (4.2-5.4); RED CELL DISTRIBUTION WIDTH 13.8 % (11.6-14.6)
[2022-02-19] MEDS: INSULIN LISPRO 100 UNITS/ML SUBCUT SCH ×4 (07:50→21:25)
[2022-02-19] MEDS: ASPIRIN 81MG TABLET PO SCH (08:53)
[2022-02-19 12:00] VITALS: BP 131/51
[2022-02-19] MEDS ORDERED: IPRATROPIUM/ALBUTEROL 0.5-3(2.5)MG/3ML NEB HHN PRN (12:45)
[2022-02-19] MEDS ORDERED: LIDOCAINE HCL 1% 10 MG/ML 10ML VIAL ONE ×2 (13:00→13:48)
[2022-02-19] MEDS ORDERED: METHYLPREDNISOLONE SOD SUCC 40 MG/ML VIAL IV SCH (13:00)
[2022-02-19 14:00] LABS: CLARITY URINE CLEAR (CLEAR); COLOR URINE YELLOW (YELLOW); KETONES URINE NEGATIVE (NEGATIVE); LEUKOCYTE ESTERASE URINE NEGATIVE (NEGATIVE); NITRITE URINE NEGATIVE (NEGATIVE); OCCULT BLOOD URINE NEGATIVE (NEGATIVE); PH URINE 6.5 (4.5-8.0); PROTEIN URINE NEGATIVE (NEGATIVE); SPECIFIC GRAVITY URINE 1.005 (1.005-1.030); UROBILINOGEN URINE 0.2 E.U./dL (0.2-1.0)
[2022-02-19] MEDS: IPRATROPIUM/ALBUTEROL 0.5-3(2.5)MG/3ML NEB HHN SCH ×2 (15:15→20:32)
[2022-02-19] MEDS: DILTIAZEM HCL 30MG TABLET PO SCH ×3 (15:35→23:08)
[2022-02-19 16:00] VITALS: BP 145/60
[2022-02-19] MEDS: ACETAMINOPHEN 325MG TABLET PO PRN (16:29)
[2022-02-19] MEDS ORDERED: DILTIAZEM HCL 5MG/ML 5ML VIAL IV NR (16:30)
[2022-02-19] MEDS: CEFTRIAXONE 2 G in DEXTROSE 5% WATER 50 ML IV SCH (18:33)
[2022-02-19 20:00] VITALS: BP_SYST 117; BP_SYST 151; BP_DIAS 50; BP_DIAS 68
[2022-02-19] MEDS: MORPHINE SULFATE 2 MG/ML CPJ (NOT FOR IM USE) IV PRN (21:51)
[2022-02-20] VITALS: BP 119/63
[2022-02-20] MEDS: IPRATROPIUM/ALBUTEROL 0.5-3(2.5)MG/3ML NEB HHN SCH ×2 (02:28→08:56)
[2022-02-20 04:49] VITALS: BP 105/43
[2022-02-20] MEDS: DILTIAZEM HCL 30MG TABLET PO SCH (05:16)
[2022-02-20 05:38] LABS: HEMATOCRIT. 36.4 % (36.0-48.0); HEMOGLOBIN. 11.8 g/dL (12.0-16.0); MEAN CORPUSCULAR VOLUME 89.5 fL (81.0-99.0); MEAN PLATELET VOLUME 8.9 fl (7.4-10.4); PLATELET 154 x1000/uL (130-400); RED BLOOD CELL COUNT 4.07 mill/uL (4.2-5.4); RED CELL DISTRIBUTION WIDTH 14.2 % (11.6-14.6)
[2022-02-20] MEDS: BLOOD SUGAR DIAGNOSTIC STRIP TEST SCH ×2 (07:01→13:10)
[2022-02-20 08:00] VITALS: BP 125/58
[2022-02-20] MEDS: INSULIN LISPRO 100 UNITS/ML SUBCUT SCH ×2 (08:32→13:25)
[2022-02-20 08:59] LABS: PLATELET ESTIMATE NORMAL
[2022-02-20] MEDS: MORPHINE SULFATE 2 MG/ML CPJ (NOT FOR IM USE) IV PRN (09:27)
[2022-02-20] MEDS: SODIUM CHLORIDE 0.9% 1,000 ML IV SCH (10:34)
[2022-02-20 12:00] VITALS: BP 111/72
[2022-02-20] MEDS ORDERED: DILTIAZEM HCL 60MG TABLET PO SCH (12:00)
[2022-02-20] MEDS ORDERED: DILTIAZEM HCL 90MG TABLET PO SCH (12:00)
[2022-02-20] MEDS ORDERED: IPRATROPIUM BROMIDE (0.02%) 0.5MG/2.5ML NEB HHN PRN (13:45)
[2022-02-20] MEDS ORDERED: ATENOLOL 50 MG TABLET PO SCH (14:30)
[2022-02-20 15:04] VITALS: BP 112/79
[2022-02-20 16:00] VITALS: BP 113/94
[2022-02-20] MEDS ORDERED: METFORMIN HCL 500MG TABLET PO SCH (17:50)
[2022-02-20] MEDS ORDERED: IPRATROPIUM BROMIDE (0.02%) 0.5MG/2.5ML NEB HHN SCH (18:00)
== END 2022-02-20 17:21 | disposition home health service (06) | DRG 871 ==
LOC: ER 08:37 → ENRESERV 10:41 → 6EST 11:03 → EDBEDREQTM 11:05 → EDBEDREQ 11:05 → 6WST 02-18 08:02
PROVIDERS: ADMIT Internal Medicine; ATTEND Internal Medicine
PROC: 02HV33Z Insertion of Infusion Device into Superior Vena Cava, Percutaneous Approach (ICD-10-PCS; principal; 2022-02-19)
PROC: B518ZZA Fluoroscopy of Superior Vena Cava, Guidance (ICD-10-PCS; 2022-02-19)
PROC: B548ZZA Ultrasonography of Superior Vena Cava, Guidance (ICD-10-PCS; 2022-02-19)
DX: A40.9 Streptococcal sepsis, unspecified (principal); J96.00 Acute respiratory failure, unspecified whether with hypoxia or hypercapnia; N39.0 Urinary tract infection, site not specified; J45.901 Unspecified asthma with (acute) exacerbation; M48.56XA Collapsed vertebra, not elsewhere classified, lumbar region, initial encounter for fracture; I47.1 Supraventricular tachycardia; K82.8 Other specified diseases of gallbladder; J84.10 Pulmonary fibrosis, unspecified; N20.0 Calculus of kidney; M47.816 Spondylosis without myelopathy or radiculopathy, lumbar region; I10 Essential (primary) hypertension; E11.9 Type 2 diabetes mellitus without complications; K59.00 Constipation, unspecified; Z20.822 Contact with and (suspected) exposure to COVID-19; K83.8 Other specified diseases of biliary tract; K80.50 Calculus of bile duct without cholangitis or cholecystitis without obstruction; M81.0 Age-related osteoporosis without current pathological fracture; R74.01 Elevation of levels of liver transaminase levels; N28.1 Cyst of kidney, acquired; Z79.891 Long term (current) use of opiate analgesic; Z79.899 Other long term (current) drug therapy; Z82.49 Family history of ischemic heart disease and other diseases of the circulatory system; Z83.3 Family history of diabetes mellitus; Z74.01 Bed confinement status; Z87.891 Personal history of nicotine dependence
CPT/HCPCS: 36415; 36573; 71045; 74176; 74181; 76705; 80048; 80053; 80061; 80076; 80162; 80202; 81003; 82550; 82962; 83036; 83605; 83735; 83880; 84484; 85025; 85379; 87077; 87186; 87426; 93005; 93306; 94640; 99285; C1725; C1769; J0696; J1815; J1885; J2270; J2920; J3370; J3490; J7030; J7060